=== PATIENT | female | born 2000 | race Caucasian/White ===

== ENCOUNTER 2022-08-06 09:38 | Emergency (ER) | payer OTHER ==
[2022-08-06 10:26] LABS: #Eosinphils 0.3 thou/uL (0.0-0.7); #Lymphocytes 3.1 thou/uL (1.20-3.40); #Monocytes 0.7 thou/uL (0.11-0.59); #Neutrophils 5.1 thou/uL (1.40-6.50); %Basophils 0.5 % (0.0-1.0); %Eosinophils 3.5 % (0.0-10.0); %Lymphocytes 33.4 % (21.0-51.0); %Monocytes 7.2 % (0.0-10.0); %Neutrophils 55.5 % (42.0-75.0); Hemoglobin 13.7 g/dL (12.0-16.0); Mean Corpuscular HGB CONC 32.3 g/dL (32.0-36.0); Mean Corpuscular Volume 89.7 fl (78.0-98.0); Mean Platelet Volume 8.2 fL (7.4-10.4); Platelet Count 233 10x3/uL (130-400); RBC Distribution Width 11.7 % (11.5-14.5); Red Blood Cell (RBC) Count 4.72 mill/uL (4.20-5.40); White Blood Cell (WBC) Count 9.2 10x3/uL (4.8-10.8)
[2022-08-06 10:44] LABS: BHCG - Serum Negative (NEGATIVE); Pregs Control Background? CLEAR/WHITE (CLR/WHITE); Pregs Control Bar Appear? YES (CONTROL BAR)
[2022-08-06] MEDS ORDERED: Acetaminophen 500 MG TAB ONE (12:11)
[2022-08-06 12:59] LABS: Troponin I Less than 0.010 ng/mL (< 0.028)
[2022-08-06 13:11] LABS: ALT (SGPT) 44 U/L (8-55); AST (SGOT) 34 U/L (5-34); Albumin 4.4 g/dL (3.5-5.0); Alkaline Phosphatase 91 U/L (40-110); Anion Gap 14 mmol/L (10-20); BUN (Urea Nitrogen) 11 mg/dL (7.0-18.7); Bilirubin, Total 0.4 mg/dL (0.2-1.2); Calc. Creatinine Clearance 0 mL/min (70-130); Calcium 9.9 mg/dL (7.8-10.44); Carbon Dioxide 22 mmol/L (22-29); Chloride 105 mmol/L (98-107); Estimated GFR 113; Globulin 3.6 g/dL (2.4-3.5); Glucose 87 mg/dL (70-105); Potassium 4.6 mmol/L (3.5-5.1); Sodium 136 mmol/L (136-145)
== END 2022-08-06 13:22 | disposition home or self-care (01) ==
LOC: ERS 09:38
DX: R51.9 Headache, unspecified (principal); R07.89 Other chest pain; R20.2 Paresthesia of skin; I10 Essential (primary) hypertension; K58.9 Irritable bowel syndrome, unspecified; M19.90 Unspecified osteoarthritis, unspecified site
CPT/HCPCS: 36415; 71045; 80053; 84484; 84703; 85025; 85379; 93005